=== PATIENT | male | born 1980 | race Caucasian/White ===

== ENCOUNTER 2018-03-08 06:29 | Observation (INO) | payer BC ==
[~2018-03-08 06:29] MED LIST: LACTATED RINGER'S 1,000 ML IV*
[2018-03-08] MEDS ORDERED: BUPIVACAINE 0.25% (MPF) 30 ML INJ (07:21)
[2018-03-08] MEDS ORDERED: ROCURONIUM 50 MG INJ ×2 (07:25→08:28)
[2018-03-08] MEDS ORDERED: NEOSTIGMINE 3 MG/3 ML SYRINGE ×2 (07:25→10:40)
[2018-03-08] MEDS ORDERED: LIDOCAINE 2% (SDV) 5 ML INJ (07:25)
[2018-03-08] MEDS ORDERED: SUCCINYLCHOLINE CHLORIDE 100 MG/5 ML SYG IV (07:25)
[2018-03-08] MEDS ORDERED: GLYCOPYRROLATE 0.4 MG INJ ×3 (07:25→10:40)
[2018-03-08] MEDS ORDERED: PROPOFOL 20 ML (07:25)
[2018-03-08] MEDS ORDERED: MEPERIDINE 100 MG INJ (07:26)
[2018-03-08] MEDS: CEFAZOLIN 2 GM/50 ML (PMX) 50 ML IVPB (08:15)
[2018-03-08] MEDS ORDERED: CEFAZOLIN 1 GM INJ (08:28)
[2018-03-08] MEDS: POLYMYXIN/BACITRACIN 1L IRRIG (08:35)
[2018-03-08] MEDS: THROMBIN 5000 UNIT VIAL (08:35)
[2018-03-08] MEDS: BUPIVACAINE 0.25%/EPI (SDV) 30 ML INJ (08:35)
[2018-03-08] MEDS: GELATIN SIZE 100 SPONGE (08:35)
[2018-03-08] MEDS ORDERED: ONDANSETRON 4 MG INJ (10:42)
[2018-03-08] MEDS ORDERED: morphine (1 MG/ML) 10ML SYRINGE IV ×2 (11:24→12:00)
[2018-03-08] MEDS ORDERED: FENTAnyl 50 MCG/ML VIAL IV ×2 (11:30)
[2018-03-08] MEDS ORDERED: MIDAZOLAM 1 MG/ML 2 ML INJ IV (11:30)
[2018-03-08] MEDS ORDERED: LABETALOL HCL 20MG INJ IV (11:30)
[2018-03-08] MEDS ORDERED: OXYCODONE/ACETAMINOPHEN (5/325) TAB PO ×2 (11:30)
[2018-03-08] MEDS ORDERED: hydrALAzine 20 MG INJ IV (11:30)
[2018-03-08] MEDS ORDERED: DIPHENHYDRAMINE 50 MG INJ IV (11:30)
[2018-03-08] MEDS ORDERED: METOCLOPRAMIDE 10 MG INJ IV (11:30)
[2018-03-08] MEDS ORDERED: HYDROmorphONE 1 MG/5 ML IV SYRINGE IV ×3 (11:30)
[2018-03-08] MEDS ORDERED: NACL 0.9% 3 ML SYG IV (11:30)
[2018-03-08] MEDS ORDERED: MEPERIDINE 25 MG INJ IV (11:30)
[2018-03-08] MEDS ORDERED: ONDANSETRON 4 MG INJ IV (11:30)
[2018-03-08] MEDS ORDERED: EPHEDrine SULFATE 50 MG/5 ML SYG IV (11:30)
[2018-03-08] MEDS ORDERED: NALOXONE (0.4 MG/ML) INJ IV (11:30)
[2018-03-08] MEDS ORDERED: HYDROCODONE/APAP (5/325) TAB PO (11:30)
[2018-03-08] MEDS ORDERED: HYDROmorphONE 0.2 MG/ML PCA (11:38)
[2018-03-08] MEDS: HYDROmorphONE 0.2 MG/ML PCA IV (11:44)
[2018-03-08] MEDS: ONDANSETRON 4 MG INJ IV (11:50)
[2018-03-08] MEDS: morphine (1 MG/ML) 10ML SYRINGE IV (12:03)
[2018-03-08] MEDS: CEFAZOLIN 1 GM/50 ML (PMX) 50 ML IVPB ×2 (12:08→17:23)
[2018-03-08] MEDS: FENTAnyl 50 MCG/ML VIAL IV (12:22)
[2018-03-08] MEDS: DEXTROSE 5%-0.45% NACL 1,000 ML IV ×2 (13:35→21:15)
[2018-03-08] MEDS: GABAPENTIN 300 MG CAP PO (21:37)
[2018-03-08] MEDS: QUETIAPINE 25 MG TAB PO (22:22)
[2018-03-08] MEDS: BETHANECHOL 25 MG TAB PO (22:22)
[2018-03-08] MEDS: LORAZEPAM 1 MG TAB PO (22:22)
[2018-03-09] MEDS: DEXTROSE 5%-0.45% NACL 1,000 ML IV ×2 (02:58→17:15)
[2018-03-09] MEDS: HYDROmorphONE 0.2 MG/ML PCA IV ×3 (04:18→17:35)
[2018-03-09] MEDS: CEFAZOLIN 1 GM/50 ML (PMX) 50 ML IVPB ×2 (05:56)
[2018-03-09] MEDS ORDERED: BETHANECHOL 25 MG TAB PO (08:00)
[2018-03-09] MEDS: GABAPENTIN 300 MG CAP PO ×3 (10:02→21:37)
[2018-03-09] MEDS: ESCITALOPRAM 10 MG TAB PO (10:02)
[2018-03-09] MEDS: LANSOPRAZOLE 30 MG CAP PO (10:03)
[2018-03-09] MEDS: BETHANECHOL 25 MG TAB PO (12:13)
[2018-03-09] MEDS: CYANOCOBALAMIN 500 MCG TAB PO (13:10)
[2018-03-09] MEDS: CALCIUM CARBONATE 750 MG CHEW TAB PO ×2 (13:11→19:23)
[2018-03-09] MEDS: MULTIVIT/CA CARB/B CMPLX/FA TAB PO (13:15)
[2018-03-09 16:33] LABS: ADD UMIC YES; UR ASCORBIC ACID NEGATIVE (NEGATIVE); UR BACTERIA FEW /HPF (NONE SEEN); UR BILIRUBIN (Dip) NEGATIVE (NEGATIVE); UR BLOOD (Dip) 1+ mg/dL (NEGATIVE); UR CLARITY CLEAR (CLEAR); UR COLOR STRAW (YELLOW); UR GLUCOSE (Dip) NEGATIVE (NEGATIVE); UR KETONES (Dip) NEGATIVE (NEGATIVE); UR LEUKOCYTE ESTERASE (Dip) NEGATIVE Leu/ul (NEGATIVE); UR NITRITE (Dip) NEGATIVE (NEGATIVE); UR RBC 1 /HPF (0-5); UR SPECIFIC GRAVITY (Dip) 1.002 (1.003-1.030); UR TOTAL PROTEIN (Dip) NEGATIVE (NEGATIVE); UR UROBILINOGEN (Dip) NEGATIVE (NEGATIVE); UR WBC 1 /HPF (0-5)
[2018-03-09] MEDS: SOD FERRIC GLUC COMPLX 125 MG in SOD CHLORIDE 0.9% 100 ML IVPB (17:00)
[2018-03-09] MEDS: MULTIVITAMINS THERAPEUTIC TAB PO (21:37)
[2018-03-09] MEDS: QUETIAPINE 25 MG TAB PO (21:37)
[2018-03-09] MEDS: DOCUSATE SODIUM 100 MG CAP PO (21:37)
[2018-03-09] MEDS: LORAZEPAM 1 MG TAB PO (21:37)
[2018-03-10] MEDS: HYDROmorphONE 0.2 MG/ML PCA IV ×3 (00:16→19:59)
[2018-03-10] MEDS ORDERED: BETHANECHOL 25 MG TAB PO (00:30)
[2018-03-10] MEDS: DEXTROSE 5%-0.45% NACL 1,000 ML IV ×3 (03:15→23:15)
[2018-03-10] MEDS: BETHANECHOL 25 MG TAB PO (04:58)
[2018-03-10 05:15] LABS: ADD MAN DIFF? NO
[2018-03-10 05:21] LABS: ABNORMAL IP MESSAGE 1; BASOPHILS % 0.2 % (0.0-2.0); EOSINOPHILS # 0.2 10^3/ul (0.0-0.5); EOSINOPHILS % 1.1 % (0.0-7.0); HEMATOCRIT 24.1 % (42.0-52.0); LYMPHOCYTES # 1.5 10^3/ul (0.8-2.9); LYMPHOCYTES % 10.1 % (15.0-51.0); MEAN CORPUSCULAR HEMOGLOBIN 16.5 pg (29.0-33.0); MEAN CORPUSCULAR HGB CONC 24.9 g/dl (32.0-37.0); MEAN CORPUSCULAR VOLUME 66.4 fl (82.0-101.0); NEUTROPHIL # 11.2 10^3/ul (1.6-7.5); NEUTROPHILS % 74.9 % (39.0-77.0); PLATELET COUNT 51 10^3/UL (140-415); POSITIVE DIFF @See below; RED BLOOD COUNT 3.63 10^6/ul (4.70-6.10)
[2018-03-10 05:36] LABS: ALANINE AMINOTRANSFERASE 31 IU/L (13-69); ALBUMIN 3.1 g/dl (3.3-4.9); ALBUMIN/GLOBULIN RATIO 1.19; ALKALINE PHOSPHATASE 72 IU/L (42-121); ANION GAP 11 (8-16); ASPARTATE AMINO TRANSFERASE 23 IU/L (15-46); BILIRUBIN,INDIRECT 0.7 mg/dl (0-1.1); BILIRUBIN,TOTAL 0.7 mg/dl (0.2-1.3); BLOOD UREA NITROGEN 5 mg/dl (7-20); CALCIUM 8.1 mg/dl (8.4-10.2); CARBON DIOXIDE 30 mmol/L (21-31); CHLORIDE 99 mmol/L (97-110); GLUCOSE 102 mg/dl (70-220); POTASSIUM 4.1 mmol/L (3.5-5.1); SODIUM 136 mmol/L (135-144); TOTAL PROTEIN 5.7 g/dl (6.1-8.1)
[2018-03-10] MEDS ORDERED: HYDROmorphONE 2 MG TAB PO (08:30)
[2018-03-10] MEDS: CALCIUM CARBONATE 750 MG CHEW TAB PO ×3 (09:33→19:04)
[2018-03-10] MEDS: CYANOCOBALAMIN 500 MCG TAB PO (09:34)
[2018-03-10] MEDS: DOCUSATE SODIUM 100 MG CAP PO ×2 (09:34→20:07)
[2018-03-10] MEDS: MULTIVITAMINS THERAPEUTIC TAB PO ×2 (09:34→20:07)
[2018-03-10] MEDS: GABAPENTIN 300 MG CAP PO ×3 (09:34→20:07)
[2018-03-10] MEDS: ESCITALOPRAM 10 MG TAB PO (09:34)
[2018-03-10] MEDS: LANSOPRAZOLE 30 MG CAP PO (09:34)
[2018-03-10 09:42] LABS: ANISOCYTOSIS 3+ (0-0); BAND NEUTROPHILS #M 0.1 10^3/ul (0.0-0.6); BAND NEUTROPHILS % (M) 1 % (0-4); BASOPHIL #M 0.1 10^3/ul (0.0-0.0); BASOPHILS % (M) 1 % (0-2); GIANT THROMBO% (M) 4 % (0-0); HYPOCHROMASIA 3+ (0-0); LYMPHOCYTES % (M) 7 % (15-51); MICROCYTOSIS 3+ (0-0); PLATELET ESTIMATE DECREASED; POIKILOCYTOSIS 3+ (0-0); POLYCHROMASIA 3+ (0-0); SEG NEUT #M 13.7 10^3/ul (1.6-7.5); SEGMENTED NEUTROPHILS (M) % 91 % (39-77)
[2018-03-10] MEDS: HYDROmorphONE 1 MG/ML SYG IV (13:34)
[2018-03-10] MEDS: SOD FERRIC GLUC COMPLX 125 MG in SOD CHLORIDE 0.9% 100 ML IVPB ×2 (14:39→19:01)
[2018-03-10] MEDS: QUETIAPINE 25 MG TAB PO (20:07)
[2018-03-10] MEDS: ACETAMINOPHEN 325 MG TAB PO (21:04)
[2018-03-11] MEDS: DEXTROSE 5%-0.45% NACL 1,000 ML IV ×2 (05:21→19:05)
[2018-03-11 05:38] LABS: ADD MAN DIFF? NO
[2018-03-11 06:08] LABS: ABNORMAL IP MESSAGE 1; BASOPHILS % 0.2 % (0.0-2.0); EOSINOPHILS # 0.5 10^3/ul (0.0-0.5); EOSINOPHILS % 5.4 % (0.0-7.0); HEMATOCRIT 22.7 % (42.0-52.0); LYMPHOCYTES # 1.5 10^3/ul (0.8-2.9); LYMPHOCYTES % 17.2 % (15.0-51.0); MEAN CORPUSCULAR HEMOGLOBIN 16.4 pg (29.0-33.0); MEAN CORPUSCULAR HGB CONC 24.7 g/dl (32.0-37.0); MEAN CORPUSCULAR VOLUME 66.6 fl (82.0-101.0); MONOCYTE # 1.1 10^3/ul (0.3-0.9); MONOCYTES % 12.9 % (0.0-11.0); NEUTROPHIL # 5.4 10^3/ul (1.6-7.5); NEUTROPHILS % 63.6 % (39.0-77.0); PLATELET COUNT 64 10^3/UL (140-415); POSITIVE DIFF @See below; RED BLOOD COUNT 3.41 10^6/ul (4.70-6.10); RED CELL DISTRIBUTION WIDTH 23.9 % (11.5-14.5)
[2018-03-11 06:08] LABS: WHITE BLOOD COUNT 8.5 10^3/ul (4.8-10.8)
[2018-03-11 06:19] LABS: HEMOGLOBIN 5.6 g/dl (14.0-18.0)
[2018-03-11] MEDS: CALCIUM CARBONATE 750 MG CHEW TAB PO ×3 (08:50→18:55)
[2018-03-11] MEDS: LANSOPRAZOLE 30 MG CAP PO (09:03)
[2018-03-11] MEDS: ESCITALOPRAM 10 MG TAB PO (09:03)
[2018-03-11] MEDS: CYANOCOBALAMIN 500 MCG TAB PO (09:03)
[2018-03-11] MEDS: GABAPENTIN 300 MG CAP PO ×2 (09:03→13:05)
[2018-03-11] MEDS: DOCUSATE SODIUM 100 MG CAP PO (09:03)
[2018-03-11] MEDS: MULTIVITAMINS THERAPEUTIC TAB PO (09:03)
[2018-03-11] MEDS: HYDROmorphONE 4 MG TAB PO ×3 (09:12→17:08)
[2018-03-11] MEDS: HYDROCODONE/APAP (5/325) TAB PO ×3 (11:00→19:25)
[2018-03-11 11:28] LABS: IMMEDIATE SPIN CROSSMATCH 1 1
[2018-03-11] MEDS: SOD FERRIC GLUC COMPLX 125 MG in SOD CHLORIDE 0.9% 100 ML IVPB (16:05)
[2018-03-11 16:20] LABS: WHITE BLOOD COUNT 8.2 10^3/ul (4.8-10.8)
[2018-03-11 16:20] LABS: ABNORMAL IP MESSAGE 1; MEAN CORPUSCULAR HEMOGLOBIN 17.1 pg (29.0-33.0); MEAN CORPUSCULAR VOLUME 68.3 fl (82.0-101.0); POSITIVE DIFF @See below; RED CELL DISTRIBUTION WIDTH 25.1 % (11.5-14.5)
[2018-03-11 16:29] LABS: ADD MAN DIFF? YES; PLATELET COUNT 86 10^3/UL (140-415)
[2018-03-11 18:09] LABS: ANISOCYTOSIS 2+ (0-0); BASOPHILS % (M) 1 % (0-2); EOSINOPHILS % (M) 3 % (0-7); GIANT THROMBO% (M) 4 % (0-0); HYPOCHROMASIA 2+ (0-0); LYMPHOCYTES #M 1.5 10^3/ul (0.8-2.9); LYMPHOCYTES % (M) 19 % (15-51); MICROCYTOSIS 2+ (0-0); MONOCYTE #M 0.4 10^3/ul (0.3-0.9); MONOCYTES % (M) 6 % (0-11); OVALOCYTES 2+ (0-0); PLATELET ESTIMATE DECREASED; POIKILOCYTOSIS 3+ (0-0); POLYCHROMASIA 1+ (0-0); SEGMENTED NEUTROPHILS (M) % 71 % (39-77); SMUDGE%M 1 % (0-0)
== END 2018-03-11 20:34 | disposition home or self-care (01) ==
LOC: SDS 06:29 → MS1 12:31 → SDS 22:46 → MS1 22:46
DX: M51.16 Intervertebral disc disorders with radiculopathy, lumbar region (principal); D50.9 Iron deficiency anemia, unspecified; F32.9 Major depressive disorder, single episode, unspecified; E66.9 Obesity, unspecified; Z68.38 Body mass index [BMI] 38.0-38.9, adult; Z98.84 Bariatric surgery status; Z88.8 Allergy status to other drugs, medicaments and biological substances
CPT/HCPCS: 36430; 72100; 80053; 81001; 85025; 86850; 86900; 86901; 86920; 87086; 88304; 97110; 97116; 97162; 97530

== ENCOUNTER 2018-09-27 09:46 | Inpatient (IN) | payer BC ==
[2018-09-27] MEDS: CEFAZOLIN 2 GM/50 ML (PMX) 50 ML (FOR WT < 120 KG) IVPB (06:00)
[2018-09-27] MEDS: LACTATED RINGER'S 1,000 ML IV (06:00)
[~2018-09-27 09:46] MED LIST changes: +CEFAZOLIN 1 GM INJ; +DESFLURANE 15 MIN; -LACTATED RINGER'S 1,000 ML IV*; +SOD CHLORIDE 0.9% 1,000 ML IV
[2018-09-27] MEDS ORDERED: BUPIVACAINE 0.25% (MPF) 30 ML INJ (13:38)
[2018-09-27] MEDS ORDERED: PROPOFOL 100 ML (15:00)
[2018-09-27] MEDS ORDERED: MIDAZOLAM 1 MG/ML 2 ML INJ (15:00)
[2018-09-27] MEDS ORDERED: SUCCINYLCHOLINE CHLORIDE 100 MG/5 ML SYG IV (15:00)
[2018-09-27] MEDS ORDERED: LIDOCAINE 1% (MDV) 20 ML INJ (15:00)
[2018-09-27] MEDS ORDERED: DEXAMETHASONE 4 MG/ML 5 ML INJ (15:00)
[2018-09-27] MEDS: BUPIVACAINE 0.5%/EPI (SDV) 30 ML INJ ×2 (15:05→18:20)
[2018-09-27] MEDS: GELATIN SIZE 100 SPONGE (15:05)
[2018-09-27] MEDS: THROMBIN 5000 UNIT VIAL ×2 (15:06)
[2018-09-27] MEDS: POLYMYXIN/BACITRACIN 1L IRRIG (15:06)
[2018-09-27] MEDS: HEMOSTATIC MATRIX SYG ZFS (15:08)
[2018-09-27] MEDS: BETAMET NA PHOS/AC(6 MG/ML) 5ML INJ (18:20)
[2018-09-27] MEDS ORDERED: ALBUTEROL 0.083% (NEB) 2.5 MG/3 ML AMP ×2 (19:02)
[2018-09-27] MEDS ORDERED: GLYCOPYRROLATE 0.4 MG INJ (19:02)
[2018-09-27] MEDS ORDERED: NEOSTIGMINE 3 MG/3 ML SYRINGE (19:02)
[2018-09-27] MEDS ORDERED: KETOROLAC 30 MG INJ (19:02)
[2018-09-27] MEDS ORDERED: EPINEPHrine 100 MCG/10 ML SYG IV (19:02)
[2018-09-27] MEDS ORDERED: morphine (1 MG/ML) 10ML SYRINGE IV ×3 (19:30)
[2018-09-27] MEDS ORDERED: FENTAnyl 50 MCG/ML VIAL IV ×2 (19:30)
[2018-09-27] MEDS ORDERED: ONDANSETRON 4 MG INJ IV (19:30)
[2018-09-27] MEDS ORDERED: MEPERIDINE 25 MG INJ IV (19:30)
[2018-09-27] MEDS ORDERED: METOCLOPRAMIDE 10 MG INJ IV (19:30)
[2018-09-27] MEDS ORDERED: LABETALOL HCL 20MG INJ IV (19:30)
[2018-09-27] MEDS ORDERED: NALOXONE (0.4 MG/ML) INJ IV (19:30)
[2018-09-27] MEDS ORDERED: hydrALAzine 20 MG INJ IV (19:30)
[2018-09-27] MEDS ORDERED: NACL 0.9% 3 ML SYG IV (19:30)
[2018-09-27] MEDS ORDERED: HYDROmorphONE 1 MG/5 ML IV SYRINGE IV ×3 (19:30)
[2018-09-27 19:34] LABS: ADD UMIC NO; UR ASCORBIC ACID NEGATIVE (NEGATIVE); UR BILIRUBIN (Dip) NEGATIVE (NEGATIVE); UR BLOOD (Dip) NEGATIVE (NEGATIVE); UR CLARITY CLEAR (CLEAR); UR COLOR YELLOW (YELLOW); UR GLUCOSE (Dip) NEGATIVE (NEGATIVE); UR KETONES (Dip) 2+ mg/dL (NEGATIVE); UR LEUKOCYTE ESTERASE (Dip) NEGATIVE Leu/ul (NEGATIVE); UR NITRITE (Dip) NEGATIVE (NEGATIVE); UR SPECIFIC GRAVITY (Dip) 1.018 (1.003-1.030); UR TOTAL PROTEIN (Dip) NEGATIVE (NEGATIVE); UR UROBILINOGEN (Dip) NEGATIVE (NEGATIVE)
[2018-09-27] MEDS: FENTAnyl 50 MCG/ML VIAL IV ×2 (19:40→19:46)
[2018-09-27] MEDS: KETOROLAC 30 MG INJ IV (19:41)
[2018-09-27] MEDS: ONDANSETRON 4 MG INJ IV (19:41)
[2018-09-27] MEDS: morphine 1 MG/ML 30 ML (PCA) IV (19:44)
[2018-09-27] MEDS: CEFAZOLIN 1 GM/50 ML (PMX) 50 ML IVPB (21:04)
[2018-09-27] MEDS: GABAPENTIN 300 MG CAP PO (21:04)
[2018-09-27] MEDS: DEXTROSE 5%-0.45% NACL 1,000 ML IV (21:04)
[2018-09-27] MEDS: THIAMINE 200 MG INJ IM (21:30)
[2018-09-27] MEDS: LORAZEPAM 1 MG TAB PO (21:54)
[2018-09-27] MEDS: QUETIAPINE 100 MG TAB PO (21:55)
[2018-09-27] MEDS: ESCITALOPRAM 10 MG TAB PO (21:55)
[2018-09-27] MEDS: SOD FERRIC GLUC COMPLX 125 MG in SOD CHLORIDE 0.9% 100 ML IVPB (23:07)
[2018-09-28] MEDS: CEFAZOLIN 1 GM/50 ML (PMX) 50 ML IVPB ×3 (02:29→14:32)
[2018-09-28] MEDS: morphine 1 MG/ML 30 ML (PCA) IV (04:56)
[2018-09-28 05:02] LABS: ADD MAN DIFF? NO
[2018-09-28] MEDS: DEXTROSE 5%-0.45% NACL 1,000 ML IV ×2 (05:03→09:59)
[2018-09-28 05:09] LABS: WHITE BLOOD COUNT 8.9 10^3/ul (4.8-10.8)
[2018-09-28 05:09] LABS: ABNORMAL IP MESSAGE 1; BASOPHILS % 0.1 % (0.0-2.0); HEMATOCRIT 39.3 % (42.0-52.0); HEMOGLOBIN 11.9 g/dl (14.0-18.0); LYMPHOCYTES # 0.7 10^3/ul (0.8-2.9); LYMPHOCYTES % 8.2 % (15.0-51.0); MEAN CORPUSCULAR HEMOGLOBIN 23.6 pg (29.0-33.0); MEAN CORPUSCULAR HGB CONC 30.3 g/dl (32.0-37.0); MEAN CORPUSCULAR VOLUME 77.8 fl (82.0-101.0); MONOCYTE # 0.2 10^3/ul (0.3-0.9); MONOCYTES % 2.6 % (0.0-11.0); NEUTROPHIL # 7.9 10^3/ul (1.6-7.5); NEUTROPHILS % 88.8 % (39.0-77.0); PLATELET COUNT 169 10^3/UL (140-415); POSITIVE DIFF @See below; RED BLOOD COUNT 5.05 10^6/ul (4.70-6.10); RED CELL DISTRIBUTION WIDTH 22.3 % (11.5-14.5)
[2018-09-28 05:21] LABS: MAGNESIUM 2.1 mg/dl (1.7-2.5)
[2018-09-28 05:23] LABS: ALANINE AMINOTRANSFERASE 59 IU/L (13-69); ALKALINE PHOSPHATASE 97 IU/L (42-121); ANION GAP 4 (5-13); ASPARTATE AMINO TRANSFERASE 51 IU/L (15-46); BLOOD UREA NITROGEN 8 mg/dl (7-20); CALCIUM 8.4 mg/dl (8.4-10.2); CARBON DIOXIDE 27 mmol/L (21-31); CHLORIDE 108 mmol/L (97-110); CREATININE 0.71 mg/dl (0.61-1.24); Estimated GFR > 60 mL/min (>60); GLUCOSE 184 mg/dl (70-220); POTASSIUM 4.8 mmol/L (3.5-5.1); SODIUM 139 mmol/L (135-144); TOTAL PROTEIN 5.5 g/dl (6.1-8.1)
[2018-09-28 05:53] LABS: THYROID STIMULATING HORMONE 0.461 MIU/L (0.465-4.680)
[2018-09-28 06:10] LABS: HEPATITIS C VIRAL ANTIBODY NEGATIVE (NEGATIVE)
[2018-09-28] MEDS ORDERED: POLYETHYLENE GLYCOL 17 GM PACKET PO (08:00)
[2018-09-28] MEDS ORDERED: morphine 1 MG/ML 30 ML (PCA) IV (08:00)
[2018-09-28] MEDS ORDERED: SENNA TAB PO (08:00)
[2018-09-28] MEDS: DOCUSATE SODIUM 100 MG CAP PO ×2 (08:25→20:05)
[2018-09-28] MEDS: GABAPENTIN 300 MG CAP PO ×4 (08:26→20:05)
[2018-09-28] MEDS: LANSOPRAZOLE 30 MG CAP PO (08:27)
[2018-09-28] MEDS: CHOLECALCIFEROL 2,000 UNIT CAP PO (08:27)
[2018-09-28] MEDS: MULTIVITAMINS THERAPEUTIC TAB PO (08:27)
[2018-09-28] MEDS: THIAMINE 100 MG TAB PO (08:28)
[2018-09-28] MEDS ORDERED: NON-FORMULARY/PATIENT OWN MED (Dexlansoprazole (Dexilant) 60 MG) PO (09:00)
[2018-09-28] MEDS ORDERED: QUETIAPINE 100 MG TAB PO ×2 (09:00)
[2018-09-28] MEDS ORDERED: ESCITALOPRAM 10 MG TAB PO (09:00)
[2018-09-28] MEDS: CYANOCOBALAMIN 500 MCG TAB PO (11:27)
[2018-09-28] MEDS ORDERED: SOD FERRIC GLUC COMPLX 125 MG in SOD CHLORIDE 0.9% 100 ML IVPB (13:00)
[2018-09-28] MEDS: OXYCODONE/ACETAMINOPHEN (10/325) TAB PO ×4 (14:33→23:58)
[2018-09-28] MEDS: QUETIAPINE 100 MG TAB PO (20:05)
[2018-09-28] MEDS: ESCITALOPRAM 10 MG TAB PO (20:05)
[2018-09-28] MEDS: LORAZEPAM 1 MG TAB PO (20:54)
[2018-09-29] MEDS: DEXTROSE 5%-0.45% NACL 1,000 ML IV (00:43)
[2018-09-29] MEDS: OXYCODONE/ACETAMINOPHEN (10/325) TAB PO ×2 (04:47→09:47)
[2018-09-29] MEDS: THIAMINE 100 MG TAB PO (09:26)
[2018-09-29] MEDS: CYANOCOBALAMIN 500 MCG TAB PO (09:26)
[2018-09-29] MEDS: DOCUSATE SODIUM 100 MG CAP PO (09:26)
[2018-09-29] MEDS: GABAPENTIN 300 MG CAP PO (09:26)
[2018-09-29] MEDS: CHOLECALCIFEROL 2,000 UNIT CAP PO (09:26)
[2018-09-29] MEDS: MULTIVITAMINS THERAPEUTIC TAB PO (09:26)
[2018-09-29] MEDS: LANSOPRAZOLE 30 MG CAP PO (09:26)
== END 2018-09-29 11:30 | disposition home or self-care (01) | DRG 519 ==
LOC: REC 09:46 → MS1 20:35
PROC: 0SB20ZZ Excision of Lumbar Vertebral Disc, Open Approach (ICD-10-PCS; principal; 2018-09-27 11:30)
DX: M51.26 Other intervertebral disc displacement, lumbar region (principal); E66.9 Obesity, unspecified; E66.01 Morbid (severe) obesity due to excess calories; Z68.41 Body mass index [BMI] 40.0-44.9, adult; F33.41 Major depressive disorder, recurrent, in partial remission
CPT/HCPCS: 72100; 80053; 81003; 82607; 83735; 84443; 85025; 86803; 86850; 86900; 86901; 87086; 88304; 97116; 97161